=== PATIENT | male | born 1990 | race Asian ===

== ENCOUNTER 2023-07-28 09:23 | Emergency (ER) | payer OTHER ==
[~2023-07-28] VITALS: Ht 160 cm; Wt 83.8 kg
[2023-07-28 09:24] VITALS: TEMP 98
[2023-07-28] MEDS: aspirin 81mg tab.chew PO ONE (10:18)
[2023-07-28 10:25] LABS: BASOPHILS # (AUTO) 0.1 X10'3 (0-0.2); BASOPHILS % (AUTO) 0.8 % (0-1); EOSINOPHILS # (AUTO) 0.9 X10'3 (0-0.9); EOSINOPHILS % (AUTO) 13.9 % (0-6); HEMATOCRIT 45.6 % (42.0-52.0); LYMPHOCYTES # (AUTO) 2.3 X10'3 (1.1-4.8); LYMPHOCYTES % (AUTO) 33.6 % (21-51); MEAN CORPUSCULAR HEMOGLOBIN 31.7 PG (27.0-31.0); MEAN CORPUSCULAR HGB CONC 35.1 g/dL (33.0-36.5); MEAN CORPUSCULAR VOLUME 90.3 FL (78-98); MEAN PLATELET VOLUME 7.7 FL (7.4-10.4); MONOCYTES # (AUTO) 0.4 X10'3 (0-0.9); MONOCYTES % (AUTO) 6.5 % (2-12); NEUTROPHILS # (AUTO) 3.1 X10'3 (1.8-7.7); NEUTROPHILS % (AUTO) 45.2 % (42-75); PLATELET COUNT 248 X10'3 (140-440); RED BLOOD COUNT 5.05 X10'6 (4.70-6.10); RED CELL DISTRIBUTION WIDTH 12.9 % (11.5-14.5); WHITE BLOOD COUNT 6.8 X10'3 (4.5-11.0)
[2023-07-28 11:03] LABS: ANION GAP 8 (8-16); BLOOD UREA NITROGEN 15 MG/DL (7-18); BUN/CREATININE RATIO 18.5 (10.0-20.0); CHLORIDE 105 MMOL/L (99-107); CREATININE 0.81 MG/DL (0.60-1.10); GLUCOSE 105 MG/DL (70-104); MAGNESIUM 2.1 MG/DL (1.5-2.4); POTASSIUM 3.6 MMOL/L (3.5-5.1); SODIUM 141 MMOL/L (135-145); TOTAL CARBON DIOXIDE 27.6 MMOL/L (24-32); eCRCL 104 ML/MIN; eGFR > 90 ML/MIN
[2023-07-28] MEDS: ketorolac tromethamine 15mg/ml inj. IM ONE (11:48)
[2023-07-28] MEDS ORDERED: VALA10002 PO (12:01)
[2023-07-28] MEDS ORDERED: GABA-530 PO (12:01)
[2023-07-28] MEDS ORDERED: TRAM50TA2 PO (12:01)
[2023-07-28 12:22] VITALS: BP 120/72; PULSE 78; RESP 16; O2SAT 98
== END 2023-07-28 12:26 | disposition home or self-care (01) ==
LOC: ER 09:24
DX: R07.89 Other chest pain (principal); B02.9 Zoster without complications; Z79.891 Long term (current) use of opiate analgesic; Z79.899 Other long term (current) drug therapy
CPT/HCPCS: 36415; 71045; 80048; 83735; 84484; 85025; 93005; 96372; 99285; J1885